=== PATIENT | female | born 1990 | race Two or more races ===

== ENCOUNTER 2022-09-15 23:47 | Inpatient (IN) | payer OTHER ==
[~2022-09-15] VITALS: Ht 170.2 cm; Wt 2.3 kg
== END 2022-09-20 16:43 | disposition home or self-care (01) | DRG 788 ==
LOC: LDR 23:47 → OB/GYN 09-17 00:01
PROVIDERS: ADMIT Obstetrics & Gynecology; ATTEND Obstetrics & Gynecology
PROC: 4A1HXCZ Monitoring of Products of Conception, Cardiac Rate, External Approach (ICD-10-PCS; 2022-09-15)
PROC: 10D00Z1 Extraction of Products of Conception, Low, Open Approach (ICD-10-PCS; principal; 2022-09-16 21:00)
DX: O60.14X0 Preterm labor third trimester with preterm delivery third trimester, not applicable or unspecified (principal); O14.04 Mild to moderate pre-eclampsia, complicating childbirth; Z3A.32 32 weeks gestation of pregnancy; Z37.0 Single live birth; Z20.822 Contact with and (suspected) exposure to COVID-19